=== PATIENT | female | born 1995 | race Caucasian/White ===

== ENCOUNTER 2016-06-05 04:23 | Emergency (ER) | payer OTHER ==
[~2016-06-05] VITALS: Ht 175.3 cm; Wt 61.2 kg
[~2016-06-05 04:23] MED LIST: DOXYCYCLINE HY100 M2 PO; MONTELUKAST SOD10 MG; PROAIR HFA0.09 MG/Ac; QVAR0.08 MG/Ac; ROXICODONE15 M1 PO; TYLENOL WITH C1 EACH PO
[2016-06-05 04:29] VITALS: BP 120/77
--- NOTE | 2016-06-05 04:38 | ED DYSPNEA/ASTHMA COMPLAINT ---
History of Present Illness General Chief Complaint: General Adult Stated Complaint: "IT HURTS TO BREATH A LOT" Source: patient Exam Limitations: no limitations Vital Signs & Intake/Output Vital Signs & Intake/Output Vital Signs Date Time Temp Pulse Resp B/P Pulse O2 O2 Flow FiO2 Ox Delivery Rate 06/05 0434 96 Room Air 06/05 428 98.1 76 20 120/77 96 Room Air Allergies Coded Allergies: latex (Intermediate, ITCHY RASH 08/06/15) Penicillins (FAMILY ALLERGY 08/06/15) Reconcile Medications Albuterol Sulfate (Proair Hfa) 0.09 MG/Actuation RODOLFO ASTHMA (Reported) Albuterol Sulfate (Ventolin Hfa) 90 MCG HFA.AER.AD 2 PUF INH Q4-6 PRN PRN WHEEZE Beclomethasone Dipropionate (Qvar) 0.08 MG/Actuation AER ASTHMA (Reported) Benzonatate (Tessalon Perle) 100 MG CAPSULE 1-2 CAP PO TID PRN COUGH Ibuprofen 600 MG TABLET 1 TAB PO TID PRN PAIN with food Levofloxacin (Levaquin) 500 MG TABLET 1 TAB PO DAILY PNEUMONIA Oxycodone HCl (Roxicodone) 15 MG TABLET 1 TAB PO Q6 PRN PAIN Triage Note: PT TO TRIAGE C/O DIFFICULTY TAKING DEEP BREATHS. PER PT SHE WAS D/X WITH THE FLU LAST WEEK AND WOKE UP THIS MORNING C/O RIB PAIN/ PAIN WHEN BREATHING. 02 SAT 96% RA. Triage Nurses Notes Reviewed? yes Onset: Gradual Duration: minute(s): Timing: recent history Severity: moderate Activities at Onset: none Prior Episodes/Possible Cause: no prior episodes Modifying Factors: Worsens With: other (worse w/deep breath). Associated Symptoms: cough : No Patient currently breastfeeds: No HPI: 21-year-old woman, history of influenza last week, completed a course of Tamiflu , awoke this morning approximately 30 minutes ago with right sided chest wall pain, worse with deep inspiration. She states that she continues to have a mild cough. She has no fever chills sputum wheezing abdominal pain nausea vomiting diarrhea. She hasn't yet taken any pain medicine. She is otherwise well and has no other concerns. Past History Travel History Traveled to [place] past 21 day No Medical History Any Pertinent Medical History? see below for history Neurological: seizure EENT: NONE Cardiovascular: NONE Respiratory: asthma Gastrointestinal: NONE Hepatic: NONE Renal: NONE Musculoskeletal: NONE Psychiatric: anxiety Endocrine: NONE Blood Disorders: NONE Cancer(s): NONE History of MRSA: No History of VRE: No History of CDIFF: No Surgical History Surgical History: BILATERAL KNEE SURGERY Psychosocial History Who do you live with Significant Other What is your primary language Georgian Tobacco Use: Current Daily Use Daily Tobacco Use Amount/Type: => 5 Cigarettes daily ETOH Use: denies use Family History Hx Contributory? No Review of Systems Review of Systems Constitutional: Reports: no symptoms. EENTM: Reports: no symptoms. Respiratory: Reports: no symptoms. Cardiovascular: Reports: no symptoms. GI: Reports: no symptoms. Genitourinary: Reports: no symptoms. Musculoskeletal: Reports: no symptoms. Skin: Reports: no symptoms. Neurological/Psychological: Reports: no symptoms. Hematologic/Endocrine: Reports: no symptoms. Immunologic/Allergic: Reports: no symptoms. All Other Systems: Reviewed and Negative Physical Exam Physical Exam General Appearance: well developed/nourished, mild distress Head: atraumatic, normal appearance Eyes: Bilateral: normal appearance. Ears, Nose, Throat: normal pharynx, normal ENT inspection Neck: normal inspection, supple, full range of motion Respiratory: normal breath sounds, chest non-tender, lungs clear, right sided chest wall tenderness and right scapula tenderness to palpation w/ muscle spasm Cardiovascular: regular rate/rhythm Gastrointestinal: normal bowel sounds, soft, non-tender, no organomegaly Extremities: normal inspection, normal capillary refill, normal range of motion, no edema Neurologic/Psych: no motor/sensory deficits, awake, alert, oriented x 3 Skin: intact, normal color, warm/dry Core Measures ACS in differential dx? No Severe Sepsis Present: No Septic Shock Present: No All Positive = PERC Ruled Out: Negative: age < 50 years, heart rate < 100 bpm, O2 sat > 94%, no hemoptysis, no hormone use, no prior DVT or PE, no unilateral leg swellin, no surgery/trauma w/ in 4w. Progress Differential Diagnosis: asthma, bronchitis, costochondritis, musculoskeletal pain, pneumonia Plan of Care: Orders Procedure Date/time Status XRY-CHEST XRAY, PA AND LATERAL 06/05 441 Active Current Medications Sig/Sharifa Start time Last Medication Dose Stop Time Status Admin Ibuprofen 800 MG ONCE ONE 06/05 444 UNVr (Motrin) 06/05 445 Diagnostic Imaging: Viewed by Me: Radiology Read. Discussed w/RAD: Radiology Read. CXR Impression: PATCHY INFILTRATES, C/W PNEUMONIA Initial ED EKG: none Comments: PATIENT: KARYN ACHARYA PRESENT AGE: 21 PATIENT ACCOUNT NO: [id number] : 96 LOCATION: [facility] ORDERING PHYSICIAN: PAGE MONTERO MD SERVICE DATE: 06/05/16 EXAM TYPE: RAD - XRY-CHEST XRAY, PA AND LATERAL EXAMINATION: XR CHEST CLINICAL INFORMATION: Right-sided chest wall pain, worse with breathing COMPARISON: 12/22/2008 TECHNIQUE: 2 views of the chest were obtained. FINDINGS: Lung volumes are symmetric. There is patchy airspace opacity in the right lower lobe. There is suggestion of additional mild patchy left lower lobe opacity. No evidence of pneumothorax, pleural effusion, or pulmonary edema. The cardiomediastinal contour is unremarkable. No acute osseous findings are seen. IMPRESSION: Patchy right lower lobe airspace opacity suspicious for pneumonia. Suggestion of additional mild left lower lobe opacity. Radiographic followup after treatment/resolution of symptoms is recommended. DICTATED BY: LINDSEY JAMIL MD DATE/TIME DICTATED:06/05/16507 PEN TESTER:ALYSIA DATE/TIME TRANSCRIBED:06/05/16507 CONFIDENTIAL, DO NOT COPY WITHOUT APPROPRIATE AUTHORIZATION. <Electronically signed in Other Vendor System> SIGNED BY: LINDSEY JAMIL MD 06/05/16 0515 Departure Departure Disposition: HOME OR SELF CARE Condition: Stable Clinical Impression Primary Impression: Chest wall pain Secondary Impressions: Pneumonia Referrals: UNKNOWN (PCP/Family) Departure Forms: Customer Survey General Discharge Information Prescriptions: Current Visit Scripts Levofloxacin (Levaquin) 1 TAB PO DAILY #7 TAB Albuterol Sulfate (Ventolin Hfa) 2 PUF INH Q4-6 PRN PRN WHEEZE #1 INHAL Ref 1 Ibuprofen 1 TAB PO TID PRN PAIN #30 TAB with food Benzonatate (Tessalon Perle) 1-2 CAP PO TID PRN COUGH #30 CAP Comments 06/05/16, 5:15am.... pt with pneumonia on cxr.... pt allergic to pcn. Given resistance to macrolides in community, will rx with levaquin. Pt stable on room air, safe for discharge. Close follow up advised. Critical Care Note Critical Care Note Critical Care Time: non-applicable
--- NOTE | 2016-06-05 05:15 | RADIOLOGY REPORT ---
EXAMINATION: XR CHEST CLINICAL INFORMATION: Right-sided chest wall pain, worse with breathing COMPARISON: 12/22/2008 TECHNIQUE: 2 views of the chest were obtained. FINDINGS: Lung volumes are symmetric. There is patchy airspace opacity in the right lower lobe. There is suggestion of additional mild patchy left lower lobe opacity. No evidence of pneumothorax, pleural effusion, or pulmonary edema. The cardiomediastinal contour is unremarkable. No acute osseous findings are seen. IMPRESSION: Patchy right lower lobe airspace opacity suspicious for pneumonia. Suggestion of additional mild left lower lobe opacity. Radiographic followup after treatment/resolution of symptoms is recommended.
[2016-06-05] MEDS ORDERED: LEVAQUIN500 M1 PO (05:22)
[2016-06-05] MEDS ORDERED: VENTOLIN HFA18 GM INH (05:22)
[2016-06-05] MEDS ORDERED: TESSALON PERLE100 M1 PO (05:22)
[2016-06-05] MEDS ORDERED: IBUPROFEN600 M1 PO (05:22)
== END 2016-06-05 05:29 ==
LOC: ERH 04:23
DX: R07.89 Other chest pain (principal); J18.9 Pneumonia, unspecified organism; Z72.0 Tobacco use